=== PATIENT | male | born 1975 | race Caucasian/White ===

== ENCOUNTER 2021-03-04 13:01 | Day surgery (SDC) | payer OTHER ==
[~2021-03-04] VITALS: Ht 182.9 cm; Wt 119.5 kg
[2021-03-04 13:30] VITALS: BP 147/111
[2021-03-04] MEDS ORDERED: PLEASE ENTER HEIGHT AND WEIGHT MC SCH (13:30)
[2021-03-04] MEDS ORDERED: CHLORHEXIDINE 15 ML UDC PO ONE (13:30)
[2021-03-04] MEDS ORDERED: LACTATED RINGERS 1,000 ML IV SCH (13:30)
[2021-03-04] MEDS ORDERED: DENIES (13:37)
[2021-03-04] MEDS ORDERED: EPINEPHRINE 1 MG/ML, 1ML ONE (15:31)
[2021-03-04] MEDS ORDERED: BUPIVACAINE/PF 0.25% ONE (15:31)
[2021-03-04] MEDS ORDERED: MIDAZOLAM 1 MG/ML, 2ML ONE (16:05)
[2021-03-04] MEDS ORDERED: PROPOFOL 50 ML ONE (16:05)
[2021-03-04] MEDS ORDERED: FENTANYL PF 250 MCG/5ML ONE ×2 (16:06→16:45)
[2021-03-04] MEDS ORDERED: ROCURONIUM 10MG/ML,5ML ONE (16:33)
[2021-03-04] MEDS ORDERED: DEXAMETHASONE 4 MG/ML, 1ML ONE ×2 (16:33)
[2021-03-04] MEDS ORDERED: ONDANSETRON 2MG/ML, 2ML ONE ×2 (16:33)
[2021-03-04] MEDS ORDERED: SUCCINYLCHOLINE 20 MG/ML, 10ML ONE (16:34)
[2021-03-04] MEDS ORDERED: MEPERIDINE/PF 25MG/0.5ML IVPush PRN (17:00)
[2021-03-04] MEDS ORDERED: EPHEDRINE 50 MG/ML, 1ML IM PRN (17:00)
[2021-03-04] MEDS ORDERED: DIAZEPAM 5 MG/ML, 2ML IVPush PRN (17:00)
[2021-03-04] MEDS ORDERED: PROMETHAZINE 25 MG/ML, 1ML IVPush PRN (17:00)
[2021-03-04] MEDS ORDERED: ONDANSETRON 2MG/ML, 2ML IVPush PRN (17:00)
[2021-03-04] MEDS ORDERED: EPHEDRINE 50 MG/ML, 1ML IVPush PRN (17:00)
[2021-03-04] MEDS ORDERED: ACETAMINOPHEN 325 MG TABLET PO PRN (17:00)
[2021-03-04] MEDS ORDERED: DIPHENHYDRAMINE 50 MG/ML, 1ML IVPush PRN (17:00)
[2021-03-04] MEDS ORDERED: HYDROmorphone 1 MG/ML, 1ML INJ IVPush PRN (17:00)
[2021-03-04] MEDS ORDERED: OXYcodone 5 MG/5 ML ORAL.SOL UDC PO PRN (17:00)
[2021-03-04] MEDS ORDERED: PROPOFOL 10 MG/ML, 20ML ONE (17:01)
[2021-03-04] MEDS ORDERED: FENTANYL PF 100 MCG/2ML ONE (17:35)
[2021-03-04] MEDS ORDERED: OXYcodone 5 MG/5 ML ORAL.SOL UDC ONE (17:35)
[2021-03-04] MEDS ORDERED: ACETAMINOPHEN 650 MG/20.3 ML UDC ONE (17:36)
[2021-03-04] MEDS: FENTANYL PF 100 MCG/2ML IV PRN ×2 (17:40→17:50)
[2021-03-04] MEDS ORDERED: DIAZEPAM 5 MG/ML, 2ML ONE (17:58)
[2021-03-04] MEDS ORDERED: hydrALAzine 20 MG/ML, 1ML ONE (18:11)
[2021-03-04] MEDS ORDERED: HYDROmorphone 1 MG/ML, 1ML INJ ONE (18:20)
[2021-03-04] MEDS ORDERED: hydrALAzine 20 MG/ML, 1ML IV PRN (18:30)
[2021-03-04] MEDS ORDERED: LABETALOL 5MG/ML, 20ML ONE (18:47)
[2021-03-04] MEDS: LABETALOL 5MG/ML, 20ML IV PRN ×2 (18:48→19:03)
== END 2021-03-04 21:05 | disposition home or self-care (01) ==
LOC: OUT 13:01
PROVIDERS: ATTEND Orthopaedic Surgery
DX: S46.212A Strain of muscle, fascia and tendon of other parts of biceps, left arm, initial encounter (principal); I10 Essential (primary) hypertension; G47.30 Sleep apnea, unspecified; Z20.822 Contact with and (suspected) exposure to COVID-19; Z79.899 Other long term (current) drug therapy; Z88.5 Allergy status to narcotic agent; X50.0XXA Overexertion from strenuous movement or load, initial encounter; Y93.89 Activity, other specified; Y92.098 Other place in other non-institutional residence as the place of occurrence of the external cause; Y99.8 Other external cause status
CPT/HCPCS: 24342; 73070; 87635; C1713; J0171; J0330; J0360; J1100; J1170; J2250; J2405; J2704; J3010; J3360; 76000